=== PATIENT | male | born 1970 | race Hispanic/Latino ===

== ENCOUNTER → 2020-07-08 00:26 | Outpatient (CLI) | payer OTHER, SELFPAY ==
[2020-07-08 18:32] LABS: SARS-CoV-2 RNA PCR Negative
== END ==
PROVIDERS: Visit Provider Orthopaedic Surgery
DX: Z01.812 Encounter for preprocedural laboratory examination (principal); Z20.822 Contact with and (suspected) exposure to COVID-19
CPT/HCPCS: C9803; U0003; U0005

== ENCOUNTER 2020-07-11 01:15 | Day surgery (SDC) | payer OTHER, SELFPAY ==
[2020-07-02 12:15] VITALS: BMI 43.1
--- NOTE | 2020-07-10 09:57 | WPDANESEPPF ---
Anes - Initial Pre Proc Eval Procedure: Operation Date: 07/11/20 07:30 Proposed Procedures p Arthroscopic Partial Medial Meniscectomy Right Knee - Sonny Haney MD Date/Time: 07/10/20 09:57 Surgeon: Sonny Haney MD Pre Op Diagnosis: medial meniscus tear right knee Patient Data Age: 50 Gender: M Height: 1.91 m Weight: 156.5 kg Allergies Allergy/AdvReac Type Severity Reaction Status Date / Time No Known Allergies Allergy Verified 07/11/20 06:30 Home Medications Medication Instructions Recorded Confirmed Type hydrochlorothiazide 25 mg tablet 25 mg PO DAILY 02/06/20 07/11/20 History tamsulosin 0.4 mg capsule 0.4 mg PO DAILY 02/06/20 07/11/20 History Patient hx anesthesia problems: none Family hx anesthesia problems: none [facility] Past Medical History Medical History (Updated 07/10/20 @ 09:58 by Manuel Morin DO) Derangement of meniscus of right knee GEOVANNY (obstructive sleep apnea) CPAP Surgical History Surgical History H/O foot surgery (~2016) Lt Tarsal Tunnel H/O umbilical hernia repair (~2017) History of hip surgery (~2014) Labrum Repair History of shoulder surgery (~2009) Labrum Repair Family History Family History Unknown Arthritis Social History Social History Years smoked: 20 Smoking status: Former smoker Tobacco type: cigarettes Alcohol intake: current Living arrangements: with family Spiritual care concerns: No Anes - Eval Final PreProcedure Day of Procedure 07/10/20 09:57 Patient weight: morbidly obese Heart: regular rate and rhythm Lungs: clear to auscultation and normal air movement Airway: Mallampati scale class III Neurological: alert and oriented Last oral intake: >/= 8 hours ASA classification: III Emergent: no Anesthetic plan: proceed Anesthesia type and monitoring: general LMA and standard monitoring Informed Consent: The patient's anesthetic plan and its attendant risks and benefits were discussed with the patient/family/POA. Questions were solicited and answers provided to the satisfaction of the patient/family/POA.
[2020-07-11] VITALS (9 sets, daily range): BP systolic 120–138; BP diastolic 60–92; PULSE 65–81; RESP 16–20; TEMP 36.3–36.8; O2SAT 92–100
[2020-07-11] MEDS: ACETAMINOPHEN 500 MG TABLET 1000 MG PO (06:32)
[2020-07-11] MEDS: LACTATED RINGERS 1,000 ML 30 ML IV CONT (06:56)
[2020-07-11] MEDS: KETOROLAC 15 MG/ML VIAL (*BKC) IV PUSH (06:56)
--- NOTE | 2020-07-11 07:30 | WPDHPUPDATE1 ---
History and Physical Update Update Date/Time: 07/11/20 07:30 History and Physical has been reviewed, including an updated exam of the patient. There are NO changes in the patient's condition. Risks, benefits, and alternatives have been discussed and questions answered. Patient agrees to proceed with procedure.
[2020-07-11] MEDS: ceFAZolin 3 GM/D5W 100 ML 100 ML IVPB (07:35)
[2020-07-11] MEDS: BUPIVACAINE/EPINEPHRINE 0.5% 30 ML VIAL INFILTRATE (08:00)
[2020-07-11] MEDS: oxyCODONE HCL (*CRX) 5 MG TAB IR PO (10:14)
--- NOTE | 2020-07-11 17:53 | SUR.PHASEII ---
1115; PT AWAKE AND ALERT. STATES PAIN TOLERABLE. STATES READY TO GO HOME.
--- NOTE | 2020-07-12 11:46 | P.OP_ITS ---
Procedure Note - Detailed Date of procedure: 07/11/20 Pre-op diagnosis: medial meniscus tear right knee Medial meniscus tear, right knee. Post-op diagnosis: same Procedure performed: Arthroscopic partial medial meniscectomy. Description of procedure: Extensive complex tear of the medial meniscus, posterior and posterior medial horn. 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 Anesthesia: GETA Surgeon: Sonny Haney MD Leather Stretcher: Skye Briseno PA-C Estimated blood loss (mL): 5 Pathology: none sent Complications: None Condition: stable Disposition: PACU Findings: Brief History: The patient complained of knee pain, swelling and mechanical symptoms despite conservative treatment. MRI confirmed the presence of a meniscus tear. Procedure Details: The patient was identified and the surgical site confirmed and signed in the preoperative holding area. Antibiotics were started per protocol. She was brought to the operative room and transferred to the OR table. A general anesthetic was administered. Supine position with the operative lower extremity position in the leg pierce after placement of a well padded tourniquet. The leg support was lowered and the contralateral limb was supported with a soft bolster. The knee was prepped and draped in the usual sterile fashion. A time-out was performed. The portal sites were marked and infiltrated with 0.5% Marcaine 20 mL. The limb was exsanguinated and the tourniquet inflated to 300 mL Hg. Standard inferolateral and inferomedial portals were established. Inflow was obtained with the saline pump. The camera was introduced. Diagnostic inspection of the joint was accomplished. The meniscus was debrided with the arthroscopic shaver and punches until stable. The arthroscopic instruments were removed. The tourniquet released and wounds closed with subcutaneous 3-0 Monocryl absorbable suture. Steri strips and a sterile dressing were applied. A light elastic wrap was placed. The patient was extubated and brought to the recovery room in stable condition.
== END 2020-07-11 11:30 | disposition home or self-care (01) ==
PROVIDERS: Visit Provider Orthopaedic Surgery
PROC: (CPT 29870; principal; 2020-07-11 07:30)
DX: M23.321 Other meniscus derangements, posterior horn of medial meniscus, right knee (principal); M22.41 Chondromalacia patellae, right knee; G47.33 Obstructive sleep apnea (adult) (pediatric); Z87.891 Personal history of nicotine dependence; E66.8 Other obesity; Z68.41 Body mass index [BMI] 40.0-44.9, adult
CPT/HCPCS: 29881; A9270; C9803; J0690; J1100; J1885; J2250; J2405; J2704; J3010; J7120; U0003; U0005